=== PATIENT | female | born 1955 | race Caucasian/White ===

== ENCOUNTER 2016-07-10 06:22 | Day surgery (SDC) | payer OTHER ==
[~2016-07-10] VITALS: Ht 154.9 cm; Wt 83.4 kg
[~2016-07-10 06:22] MED LIST: [UNRECOGNIZED DRUG - REMARK]
[2016-07-10 06:53] VITALS: Ht 154.9 cm; Wt 83.4 kg
[2016-07-10] MEDS ORDERED: ESOM20CA PO (07:05)
[2016-07-10] MEDS ORDERED: LISI10TA2 PO (07:05)
[2016-07-10] MEDS ORDERED: ALBI30PE SQ (07:05)
[2016-07-10] MEDS ORDERED: PRAV10TA43 PO (07:05)
[2016-07-10] MEDS ORDERED: SENN-53 PO (07:05)
[2016-07-10] MEDS ORDERED: HYD25 PO (07:05)
[2016-07-10] MEDS ORDERED: MTF1000T PO (07:05)
[2016-07-10] MEDS ORDERED: PROPOFOL 20 ML ONE (07:27)
[2016-07-10 07:28] VITALS: BP 121/60; PULSE 59
[2016-07-10 08:55] VITALS: BP 118/59; PULSE 59; RESP 20
--- NOTE | 2016-07-10 11:07 | GILP ---
DATE OF PROCEDURE: NAME OF PROCEDURES: 1. Esophagogastroduodenoscopy and biopsy. 2. Colonoscopy and biopsy. SURGEON: Catarina Weiner MD PREOPERATIVE DIAGNOSES: 1. Abdominal pain. 2. Chronic heartburn. 3. Change in the bowel habit. POSTOPERATIVE DIAGNOSES: 1. Gastroesophageal reflux disease. 2. Gastritis with erosions. 3. Gastric mucosal biopsies were taken for Helicobacter pylori test. 4. Colonoscopy all the way to the cecum. 5. Small transverse colon polyp was removed using the biopsy forceps. 6. Internal hemorrhoids. INDICATION FOR THE PROCEDURE: Ms. Bonnie Overton is a 61-year-old female patient who had upper abdo bart pain and chronic heartburn, not responding to therapy. She also noticed a change in the bowel habit. The patient was scheduled for endoscopy and colonoscopy for further evaluation. The procedures and possible complications were well explained to the patient. The patient understoo d and consented to the procedure. DESCRIPTION OF PROCEDURE: Under the influence of anesthesia, the gastroscope was carefully introduc ed into the esophagus and under direct vision, it was advanced to the stomach and through the pyloru s into the duodenal bulb and descending duodenum. FINDINGS: ESOPHAGUS: The patient had gastroesophageal reflux disease. STOMACH: She had gastritis with erosions. Gastric mucosal biopsies were taken for H. pylori test. DUODENUM: Normal. The colonoscope was carefully introduced in the rectum and under direct vision, it was advanced all the way to the cecum. FINDINGS: The patient had a small transverse colon polyp and it was removed using the biopsy forcep s. She was noted to have internal hemorrhoids. She tolerated the procedures very well. There was no complication from the procedures. At the end of the procedures, she was awake with stable vital signs and she was discharged home to the care of her family. IMPRESSION: Please see postoperative diagnosis. PLAN: 1. Continue Nexium. 2. Add Zantac 300 mg p.o. at bedtime. 3. Await histopathology reports. 4. Screening colonoscopy in 10 years. Dictated By: CATARINA AMADOR/PEÑA Conf#: [id number] DID#: [id number]
== END 2016-07-10 12:00 | disposition home or self-care (01) ==
LOC: GIL 06:22
PROVIDERS: ATTEND Internal Medicine Gastroenterology
DX: R19.4 Change in bowel habit (principal); D12.3 Benign neoplasm of transverse colon; K21.9 Gastro-esophageal reflux disease without esophagitis; K29.60 Other gastritis without bleeding; K64.8 Other hemorrhoids; I10 Essential (primary) hypertension; E11.9 Type 2 diabetes mellitus without complications; E78.5 Hyperlipidemia, unspecified; E66.9 Obesity, unspecified; Z68.34 Body mass index [BMI] 34.0-34.9, adult
CPT/HCPCS: 43239; 45380; 82962; 87081; 88305; Z7610